=== PATIENT | female | born 1990 | race Native Hawaiian/Other Pacific Islander ===

== ENCOUNTER 2017-05-28 22:30 | Emergency (ER) | payer OTHER, MEDICAID ==
[2017-05-28 23:00] VITALS: BP 122/81
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
[2017-05-29] MEDS ORDERED: VALIUM PO ONE (02:45)
[2017-05-29] MEDS ORDERED: TORADOL IM ONE (02:45)
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
== END 2017-05-29 05:24 | disposition home or self-care (01) ==
LOC: ED 22:30
DX: S80.02XA Contusion of left knee, initial encounter (principal); M54.5 Low back pain; R07.89 Other chest pain; V49.49XA Driver injured in collision with other motor vehicles in traffic accident, initial encounter; X58.XXXA Exposure to other specified factors, initial encounter; Y93.89 Activity, other specified; Y92.89 Other specified places as the place of occurrence of the external cause; Y99.8 Other external cause status
CPT/HCPCS: 71020; 72040; 73590; 96372; 99283; J1885

== ENCOUNTER 2019-06-11 19:35 | Inpatient (IN) | payer OTHER ==
[2019-06-11] MEDS ORDERED: OXYTOCIN DRIP 30,000 MILLIUNITS/500 ML BAG IV ONE (21:05)
[2019-06-11] MEDS ORDERED: TERBUTALINE 1 MG/1 ML INJ IVP PRN (21:11)
[2019-06-11] MEDS ORDERED: BUTORPHANOL 2 MG/1 ML INJ IV PRN (21:11)
[2019-06-11] MEDS ORDERED: AMPICILLIN/NS 2 GM/100 ML 2 GM/100 ML BAG IV ONE (21:11)
[2019-06-11] MEDS ORDERED: ONDANSETRON 4 MG/2 ML INJ IV PRN (21:11)
[2019-06-11] MEDS ORDERED: LIDOCAINE (2%) 20 MG/1 ML VIAL 20 ML MDV INFILTRATI ONE (21:11)
[2019-06-11] MEDS ORDERED: TERBUTALINE 1 MG/1 ML INJ SUB-Q PRN (21:11)
[2019-06-11] MEDS ORDERED: NALOXONE 0.4 MG/1 ML INJ IV PRN (21:11)
[2019-06-11] MEDS ORDERED: MINERAL OIL 30 ML ORAL LIQD PO PRN (21:11)
[2019-06-11] MEDS ORDERED: ePHEDrine SULFATE 50 MG/1 ML INJ IV PRN (21:11)
[2019-06-11 21:31] LABS: Hematocrit 34.9 % (30.3-42.9); Hemoglobin 11.5 gm/dl (10.1-14.3); Mean Corpuscular HGB Conc 33 % (30-34); Mean Corpuscular Volume 82 fl (79-97); Platelet Count 231 K/mm3 (140-440); Red Blood Count 4.26 M/mm3 (3.65-5.03); Red Cell Distribution Width 16.7 % (13.2-15.2)
[2019-06-11] MEDS ORDERED: OXYTOCIN DRIP 30 UNITS/500 ML BAG IV SCH (22:00)
[2019-06-11] MEDS ORDERED: OXYTOCIN 20 UNIT/1000ML DRIP 20 UNITS/1,000 ML BAG IV SCH ×2 (22:00)
[2019-06-11] MEDS: LACTATED RINGERS 1,000 ML IV SCH (22:01)
--- NOTE | 2019-06-11 22:04 | History and Physical Report ---
History of Present Illness Date of examination: 06/11/19 Date of admission: 06/11/19 19:35 Chief complaint: care at [facility] since 14 6/7 Weeks, care at [facility] prior to incarceration. 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 course also complicated by multiple UTIs (taking Macrobid Suppression). 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 10 minutes after ) #2 Gender: Male year: 2,010 Birthweight: 3.487 kg Method of Delivery: Vaginal Gestational age at delivery: 40 Complications: none #3 Infant Gender: Female year: 2,013 Birthweight: 3.118 kg Method of Delivery: Vaginal Gestational age at delivery: 30 Medications and Allergies Allergies Allergy/AdvReac Type Severity Reaction Status Date / Time No Known Allergies Allergy Verified 06/21/13 16:24 Home Medications Medication Instructions Recorded Confirmed Last Taken Type Ferrous Sulfate [Iron 325 MG] 325 mg PO ONCE 06/11/19 06/11/19 1 Day Ago History ~06/10/19 Nitrofurantoin [place]/M-Cryst 100 mg PO ONCE 06/11/19 06/11/19 1 Day Ago History [Macrobid CAP] ~06/10/19 Vit-Fe Fumar-FA [ 1 tab PO QDAY 06/11/19 06/11/19 1 Day Ago History Vitamin] ~06/10/19 valACYclovir [Valtrex] 10 tab PO ONCE 06/11/19 06/11/19 1 Day Ago History ~06/10/19 Active Meds: Active Medications Butorphanol Tartrate (Stadol) 2 mg IV Q2H PRN PRN Reason: Pain , Severe (7-10) Ephedrine Sulfate (Ephedrine Sulfate) 10 mg IV Q2M PRN PRN Reason: Hypotension Oxytocin/Sodium Chloride (Pitocin/Ns 20 Unit/1000ml Drip) 20 units in 1,000 mls @ 125 mls/hr IV DIRECT CALEB Oxytocin/Sodium Chloride (Pitocin/Ns 30 Unit/500ml) 30,000 milliunits in 500 mls @ 1 mls/hr IV DIRECT ONE; Protocol Stop: 07/02/19 17:04 Oxytocin/Sodium Chloride (Pitocin/Ns 20 Unit/1000ml Drip) 20 units in 1,000 mls @ 125 mls/hr IV DIRECT CALEB Oxytocin/Sodium Chloride (Pitocin/Ns 30 Unit/500ml) 30 units in 500 mls @ 4 mls/hr IV TITR CALEB; Protocol Lactated Ringer's (Lactated Ringers) 1,000 mls @ 125 mls/hr IV DIRECT CALEB Ampicillin Sodium (Ampicillin/Ns 1 Gm/50 Ml) 1 gm in 50 mls @ 100 mls/hr IV Q4HR CALEB; Protocol Ampicillin Sodium (Ampicillin/Ns 2 Gm/100 Ml) 2 gm in 100 mls @ 100 mls/hr IV ONCE ONE; Protocol Stop: 06/11/19 22:10 Mineral Oil (Mineral Oil) 30 ml PO QHS PRN PRN Reason: Constipation Naloxone HCl (Naloxone) 0.1 mg IV Q2MIN PRN PRN Reason: Res Rate </= 8 or 02 SAT < 92% Ondansetron HCl (Zofran) 4 mg IV Q8H PRN PRN Reason: Nausea And Vomiting Terbutaline Sulfate (Brethine) 0.25 mg SUB-Q ONCE PRN PRN Reason: Hyperstimulation/Hypertonicity Terbutaline Sulfate (Brethine) 0.25 mg IVP ONCE PRN PRN Reason: Hyperstimulation/Hypertonicity Review of Systems All systems: negative - Vital Signs Vital signs: Vital Signs Pulse Pulse Ox 81 100 06/11/19 19:55 06/11/19 19:55 Temp Pulse Resp BP Pulse Ox 98.1 F 86 16 114/72 98 06/11/19 20:49 06/11/19 21:55 06/11/19 20:49 06/11/19 20:58 06/11/19 21:55 - Physical Exam Breasts: Positive: normal Cardiovascular: Regular rate Lungs: Positive: Clear to auscultation, Normal air movement Abdomen: Positive: normal appearance, soft, normal bowel sounds Genitourinary (Female): Positive: normal external genitalia, normal perenium Vagina: Positive: normal moisture Uterus: Positive: enlarged Anus/Rectum: Positive: normal perianal skin Extremities: Positive: normal - Obstetrical FHR: category 1 Uterine Contraction Monitor Mode: External Cervical Dilatation: 3.5 (VTX, Intact) Cervical Effacement Percentage: 60 station: -2 Uterine Contraction Pattern: Irregular Uterine Tone Measurement Phase: Resting Uterine Contraction Intensity: Mild Results Result Diagrams: 06/11/19 20:50 Abnormal lab results 06/11/19 Range/Units 20:50 MCH 27 L (28-32) pg RDW 16.7 H (13.2-15.2) % All other labs normal. Assessment and Plan A: IUP @ 39 Weeks [facility] P: Admit to L&S per Routine Orders Pitocin Induction GBS Prophylaxis
--- NOTE | 2019-06-11 23:56 | Progress Note ---
Assessment and Plan A: IUP @ 39 Weeks Category I Tracing [facility] GBS Positive P: AROM IUPC Placed Continue Pitocin Induction Continue GBS Prophylaxis Subjective - Subjective Date of service: 06/11/19 Patient reports: movement normal, contractions Objective - Vital Signs Vital Signs: Vital Signs - 12hr 06/11/19 06/11/19 06/11/19 19:55 19:56 20:00 Temperature Pulse Rate 81 84 70 Respiratory Rate Blood Pressure 115/69 O2 Sat by Pulse 100 98 Oximetry 06/11/19 06/11/19 06/11/19 20:05 20:10 20:15 Temperature Pulse Rate 69 76 85 Respiratory Rate Blood Pressure O2 Sat by Pulse 98 98 99 Oximetry 06/11/19 06/11/19 06/11/19 20:20 20:25 20:30 Temperature Pulse Rate 75 102 H 82 Respiratory Rate Blood Pressure O2 Sat by Pulse 98 99 98 Oximetry 06/11/19 06/11/19 06/11/19 20:35 20:40 20:45 Temperature Pulse Rate 85 85 89 Respiratory Rate Blood Pressure O2 Sat by Pulse 97 97 97 Oximetry 06/11/19 06/11/19 06/11/19 20:49 20:50 20:55 Temperature 98.1 F Pulse Rate 89 96 H 84 Respiratory 16 Rate Blood Pressure O2 Sat by Pulse 96 98 96 Oximetry 06/11/19 06/11/19 06/11/19 20:58 21:00 21:05 Temperature Pulse Rate 83 86 71 Respiratory Rate Blood Pressure 114/72 O2 Sat by Pulse 98 96 Oximetry 06/11/19 06/11/19 06/11/19 21:10 21:15 21:20 Temperature Pulse Rate 76 83 81 Respiratory Rate Blood Pressure O2 Sat by Pulse 96 97 98 Oximetry 06/11/19 06/11/19 06/11/19 21:25 21:30 21:31 Temperature Pulse Rate 77 88 90 Respiratory Rate Blood Pressure O2 Sat by Pulse 99 98 94 Oximetry 06/11/19 06/11/19 06/11/19 21:40 21:45 21:50 Temperature Pulse Rate 84 98 H 82 Respiratory Rate Blood Pressure O2 Sat by Pulse 98 97 98 Oximetry 06/11/19 06/11/19 06/11/19 21:55 22:00 22:05 Temperature Pulse Rate 86 75 87 Respiratory Rate Blood Pressure O2 Sat by Pulse 98 99 99 Oximetry 06/11/19 06/11/19 06/11/19 22:10 22:15 22:20 Temperature Pulse Rate 82 76 71 Respiratory Rate Blood Pressure O2 Sat by Pulse 99 99 99 Oximetry 06/11/19 06/11/19 06/11/19 22:25 22:30 22:35 Temperature Pulse Rate 72 73 76 Respiratory Rate Blood Pressure O2 Sat by Pulse 98 99 99 Oximetry 06/11/19 06/11/19 06/11/19 22:40 22:45 22:50 Temperature Pulse Rate 69 69 81 Respiratory Rate Blood Pressure O2 Sat by Pulse 99 98 98 Oximetry 06/11/19 06/11/19 06/11/19 22:55 23:00 23:05 Temperature Pulse Rate 74 76 76 Respiratory Rate Blood Pressure O2 Sat by Pulse 98 99 97 Oximetry 06/11/19 06/11/19 06/11/19 23:10 23:15 23:20 Temperature Pulse Rate 71 62 63 Respiratory Rate Blood Pressure O2 Sat by Pulse 99 97 97 Oximetry 06/11/19 06/11/19 06/11/19 23:25 23:30 23:35 Temperature Pulse Rate 66 70 67 Respiratory Rate Blood Pressure O2 Sat by Pulse 98 98 98 Oximetry 06/11/19 06/11/19 06/11/19 23:40 23:45 23:50 Temperature Pulse Rate 81 71 58 L Respiratory Rate Blood Pressure O2 Sat by Pulse 99 99 99 Oximetry - Exam Breasts: normal Cardiovascular: Regular rate Lungs: Clear to auscultation, Normal air movement Abdomen: Present: normal appearance, soft, normal bowel sounds Uterus: Present: fundal height above umbilicus FHR: category 1 Uterine Contraction Monitor Mode: Internal Cervical Dilatation: 5 (Small amount of clear fluid upon AROM @2344) Cervical Effacement Percentage: 70 station: -1 Uterine Contraction Pattern: Irregular Uterine Tone Measurement Phase: Resting Uterine Contraction Intensity: Moderate Extremities: normal - Labs Labs: Abnormal Labs 06/11/19 20:50 MCH 27 L RDW 16.7 H Laboratory Results - last 24 hr 06/11/19 06/11/19 06/11/19 20:50 20:50 20:50 WBC 8.2 RBC 4.26 Hgb 11.5 Hct 34.9 MCV 82 MCH 27 L MCHC 33 RDW 16.7 H Plt Count 231 Syphilis IgG Antibody Non-reactive Blood Type O POSITIVE Antibody Screen Negative
[2019-06-12] MEDS ORDERED: ePHEDrine SULFATE 50 MG/1 ML INJ IV PRN (00:36)
[2019-06-12] MEDS ORDERED: NALOXONE 2 MG/2 ML INJ IV PRN (00:36)
--- NOTE | 2019-06-12 00:38 | Anesthesia Consultation ---
Anesthesia Consult and Med Hx Date of service: 06/12/19 - Airway Anesthetic Teeth Evaluation: Good ROM Head & Neck: Adequate Mental/Hyoid Distance: Adequate Mallampati Class: Class II Intubation Access Assessment: Probably Good - Pulmonary Exam CTA: Yes - Cardiac Exam Cardiac Exam: RRR - Pre-Operative Health Status ASA Pre-Surgery Classification: ASA2 Proposed Anesthetic Plan: Epidural - Pulmonary Hx Asthma: No COPD: No Hx Pneumonia: No - Cardiovascular System Hx Hypertension: No - Central Nervous System Hx Seizures: No Hx Psychiatric Problems: No - Endocrine Hx Renal Disease: No Hx End Stage Renal Disease: No Hx Hypothyroidism: No Hx Hyperthyroidism: No - Hematic Hx Anemia: Yes Hx Sickle Cell Disease: No - Other Systems Hx Alcohol Use: No
[2019-06-12] MEDS ORDERED: fentaNYL-BUPIV 2 MCG/ML-0.125% 200 MCG/100 ML BAG EPIDURAL SCH (01:00)
[2019-06-12] MEDS ORDERED: AMPICILLIN/NS 1 GM/50 ML 1 GM/50 ML BAG IV SCH (01:13)
[2019-06-12] MEDS ORDERED: WITCH HAZEL/ GLYCERIN PAD TP PRN (03:11)
[2019-06-12] MEDS ORDERED: diphenhydrAMINE 25 MG CAP PO PRN (03:11)
[2019-06-12] MEDS ORDERED: LANOLIN/ZINC/DIMETHICONE (LANSINOH) 7 GM TP PRN (03:11)
--- NOTE | 2019-06-12 03:20 | Procedure Note ---
OB Delivery Note - Delivery Date of Delivery: 06/12/19 (0235) Surgeon: ADELA ALMEIDA Estimated blood loss: 200cc - Vaginal Delivery presentation: vertex Delivery position: OA Intrapartum events: mult.variable deceleratio Delivery induction: oxytocin Delivery augmentation: rupture of membranes, pitocin Delivery monitor: external FHT, internal uterine Route of delivery: Delivery placenta: spontaneous Delivery cord: 3 umbilical vessels Episiotomy: none Delivery laceration: none Anesthesia: epidural Delivery comments: of a live 7'3 female infant over a intact perineum under epidural anesthesia with Apgars of 8 and 9 at 0235 on 06/12/2019. Infant directly to maternal abd/chest, skin to skin contact. Spontaneous delivery of placenta complete and intact with Manriquez side presenting at 0240. Fundus is firm and midline located 4 below the U. Lochia is scant. Delayed cord clamping and cutting; Cord cut by the patient. Cord blood collected. Placenta discarded. GBS prophylaxis X1. - A at 1 minute: 8 at 5 minutes: 9 Gender: Female (7'3)
[2019-06-12] MEDS: LACTATED RINGERS 1,000 ML IV SCH (08:00)
[2019-06-12] MEDS: PRENATAL VIT27-FE FUMARATE-FOLIC ACID VIT TAB PO SCH (10:51)
[2019-06-12] MEDS: HYDROcodone/ACETAMINOPHEN 5-325 MG TAB PO PRN ×2 (10:51→18:19)
[2019-06-12] MEDS: IBUPROFEN 600 MG TAB PO SCH ×3 (10:51→22:47)
--- NOTE | 2019-06-12 19:51 | XRay Report ---
AP pelvis Right femur-4 views INDICATION: Fell, c/o pain. COMPARISON: None. IMPRESSION: Questionable mild widening at the pubic symphysis but the SI joints appear symmetric and normal and no acute fracture is identified. This could be a normal variant. The right femur is also unremarkable. No significant DJD in the hip or knee. Signer Name: Taz Landers MD Signed: 06/12/2019 7:47 PM Workstation Name: [id number]
[2019-06-12 20:30] LABS: Hematocrit 32.3 % (30.3-42.9); Hemoglobin 10.7 gm/dl (10.1-14.3)
[2019-06-13] MEDS: HYDROcodone/ACETAMINOPHEN 5-325 MG TAB PO PRN ×2 (02:47→12:02)
[2019-06-13 09:23] VITALS: BP 108/64
[2019-06-13] MEDS: IBUPROFEN 600 MG TAB PO SCH (09:25)
[2019-06-13] MEDS: PRENATAL VIT27-FE FUMARATE-FOLIC ACID VIT TAB PO SCH (09:25)
--- NOTE | 2019-06-13 14:40 | Progress Note ---
Assessment and Plan A: day 1 S/P . Supplement with iron. Anticipate discharge tomorrow if patient continues to do well. Subjective - Subjective Date of service: 06/13/19 Principal diagnosis: day 1 S/P Interval history: day 1 S/P . Doing well. Pt. reports small amount of lochia. Patient is voiding without difficulty, ambulating well, tolerating a regular diet. Patient denies headache, chest pain, shortness of breath, leg pain, abdominal pain, heavy bleeding or any other problems. Patient reports: appetite normal, voiding normally, pain well controlled, flatus, ambulating normally, no dizzy ambulation, no nauseated : doing well Objective - Vital Signs Latest vital signs: Vital Signs Temp Pulse Resp BP BP Pulse Ox 06/13/19 08:00 97.6 F 60 16 108/64 100 06/13/19 00:00 98.6 F 62 20 117/63 98 06/12/19 16:27 98.7 F 65 16 100/51 97 Intake and Output 06/12/19 06/13/19 06/13/19 23:59 07:59 15:59 Intake Total 480 Balance 480 Intake: Oral 480 Other: Total, Intake Amount 240 # Voids Indwelling Catheter 1 - Exam Cardiovascular: Present: Regular rate, Normal S1, Normal S2 Lungs: Present: Clear to auscultation Abdomen: Present: normal appearance, soft. Absent: distention, tenderness, guarding, rigidity Uterus: Present: normal, firm. Absent: bogginess, tenderness Extremities: Present: normal. Absent: tenderness, edema
[2019-06-13] MEDS ORDERED: FERROUS SULFATE 325 MG TAB PO SCH (22:00)
== END 2019-06-13 16:24 | disposition home or self-care (01) | DRG 806 ==
LOC: EEVIPCON 19:35 → LD 19:35 → OB 06-12 09:18
PROVIDERS: ADMIT Obstetrics & Gynecology; ATTEND Obstetrics & Gynecology
PROC: 10907ZC Drainage of Amniotic Fluid, Therapeutic from Products of Conception, Via Natural or Artificial Opening (ICD-10-PCS; 2019-06-11)
PROC: 3E033VJ Introduction of Other Hormone into Peripheral Vein, Percutaneous Approach (ICD-10-PCS; 2019-06-11)
PROC: 10H07YZ Insertion of Other Device into Products of Conception, Via Natural or Artificial Opening (ICD-10-PCS; 2019-06-11)
PROC: 10E0XZZ Delivery of Products of Conception, External Approach (ICD-10-PCS; principal; 2019-06-12)
PROC: 3E0R3BZ Introduction of Anesthetic Agent into Spinal Canal, Percutaneous Approach (ICD-10-PCS; 2019-06-12)
PROC: 00HU33Z Insertion of Infusion Device into Spinal Canal, Percutaneous Approach (ICD-10-PCS; 2019-06-12)
DX: O76 Abnormality in fetal heart rate and rhythm complicating labor and delivery (principal); O98.32 Other infections with a predominantly sexual mode of transmission complicating childbirth; Z37.0 Single live birth; O23.43 Unspecified infection of urinary tract in pregnancy, third trimester; O99.824 Streptococcus B carrier state complicating childbirth; A60.00 Herpesviral infection of urogenital system, unspecified; Z3A.39 39 weeks gestation of pregnancy
CPT/HCPCS: 36415; 72170; 85014; 85018; 85027; 86592; 86850; 86900; 86901; G0378; J0290; J2590; J7120